=== PATIENT | male | born 1990 | race Asian ===

== ENCOUNTER 2022-06-25 01:06 | Inpatient (IN) | payer OTHER ==
[~2022-06-25] VITALS: Ht 167.6 cm; Wt 63.6 kg
[2022-06-25 05:05] LABS: COVID AG,FIA SOURCE NASAL SWAB
[2022-06-25 05:09] LABS: BASOPHILS % (AUTO) 0.3 % (0.0-2.0); EOSINOPHILS % (AUTO) 0.5 % (1.0-6.0); HEMATOCRIT 48.2 % (41-53); HEMOGLOBIN 16.6 g/dL (13.5-17.5); LYMPHOCYTES # (AUTO) 1.9 K/uL (1.0-4.8); LYMPHOCYTES % (AUTO) 21.2 % (22.0-44.0); MEAN CORPUSCULAR HEMOGLOBIN 31.9 pg (26.0-34.0); MEAN CORPUSCULAR HGB CONC 34.5 G/dL (31.0-37.0); MEAN CORPUSCULAR VOLUME 92 fL (80-100); MONOCYTES # (AUTO) 0.7 K/uL (0.1-1.0); MONOCYTES % (AUTO) 8.5 % (2.0-9.0); NEUTROPHILS # (AUTO) 6.1 K/uL (1.8-7.7); NEUTROPHILS % (AUTO) 69.5 % (40.0-70.0); PLATELET COUNT (AUTO) 247 K/uL (150-450); RED BLOOD CELL COUNT(AUTO) 5.21 MIL/uL (4.50-5.90)
[2022-06-25 05:19] LABS: ANION GAP 4 mmol/L (8-16); CALCIUM, TOTAL 9.6 mg/dL (8.8-10.5); CARBON DIOXIDE 32 mmol/L (22-29); CHLORIDE 103 mmol/L (98-107); CREATININE 1.03 mg/dL (0.60-1.30); GLUCOSE,RANDOM 108 mg/dL (70-110); POTASSIUM 4.4 mmol/L (3.5-5.1); SODIUM SERUM 139 mmol/L (136-145); UREA NITROGEN, BLOOD 18 mg/dL (7-18)
[2022-06-25 05:20] LABS: GLOMERULAR FILTR. RATE CALC > 60 mL/min (>60)
[2022-06-25 05:25] LABS: ALANINE AMINOTRANSFERASE 34 U/L (12-78); ALBUMIN 4.2 g/dL (3.4-5.0); ALKALINE PHOSPHATASE 77 U/L (46-116); ASPARTATE AMINOTRANSFERASE 19 U/L (15-37); BILIRUBIN,TOTAL 0.8 mg/dL (0.1-1.0); TOTAL PROTEIN, SERUM 7.6 g/dL (6.4-8.2)
[2022-06-25 08:02] VITALS: BP 122/79
[2022-06-25] MEDS ORDERED: GuaiFENesin/D-METHORPHAN [SUGAR-FREE] 200-20MG/10 ML SYRUP UDCUP PO PRN (13:00)
[2022-06-25] MEDS ORDERED: CloNIDine HCL 0.1 MG TABLET PO PRN (13:00)
[2022-06-25] MEDS ORDERED: LOPERAMIDE HCL 2 MG CAPSULE PO PRN (13:00)
[2022-06-25] MEDS ORDERED: DOCUSATE SODIUM 100 MG CAPSULE PO PRN (13:00)
[2022-06-25] MEDS ORDERED: MAGNESIUM HYDROXIDE SUSPENSION 30 ML UDCUP PO PRN (13:00)
[2022-06-25] MEDS ORDERED: ACETAMINOPHEN 325 MG TABLET PO PRN (13:00)
[2022-06-25] MEDS ORDERED: PETROLATUM,WHITE 28 GM JELLY TP PRN (13:00)
[2022-06-25] MEDS ORDERED: NICOTINE 14 MG/24 HOUR PATCH TD PRN (13:00)
[2022-06-25] MEDS ORDERED: ALBUTEROL SULFATE HFA 90 MCG/PUFF 8 GM INHALER IH PRN (13:00)
[2022-06-25] MEDS ORDERED: ONDANSETRON HCL 4 MG TABLET PO PRN (13:00)
[2022-06-25] MEDS ORDERED: MAG HYDROX/AL HYDROX/SIMETH ES 30 ML SUSPENSION UDCUP PO PRN (13:00)
[2022-06-25] MEDS ORDERED: IBUPROFEN 400 MG TABLET PO PRN (13:00)
[2022-06-25 15:18] VITALS: BP 102/65
[2022-06-25 19:21] VITALS: BP 124/65
[2022-06-25] MEDS ORDERED: MIRTAZAPINE 15 MG TABLET PO SCH (21:00)
[2022-06-26 05:12] VITALS: BP 102/63
[2022-06-26 07:14] VITALS: BP 98/59
[2022-06-26] MEDS ORDERED: MIRT-89 PO (12:04)
[2022-06-26 15:21] VITALS: BP 110/63
== END 2022-06-27 00:11 | DRG 885 ==
LOC: EMS 01:06 → 6S 06:38
PROVIDERS: ADMIT Hospitalist; ATTEND Hospitalist
DX: F33.2 Major depressive disorder, recurrent severe without psychotic features (principal); R45.851 Suicidal ideations; Z20.822 Contact with and (suspected) exposure to COVID-19; F41.9 Anxiety disorder, unspecified; Z79.899 Other long term (current) drug therapy
CPT/HCPCS: 80053; 85025; 99285; G0480